=== PATIENT | male | born 1955 | race Caucasian/White ===

== ENCOUNTER 2022-04-02 22:43 | Emergency (ER) | payer OTHER ==
[2022-04-02] MEDS ORDERED: Famotidine 20 MG Tab PO ONE (22:47)
[2022-04-02] MEDS ORDERED: methylPREDNISolone Sodium Succinate 125 MG/2 ML SDV IVPUSH ONE (22:47)
[2022-04-02] MEDS ORDERED: Ibuprofen 600 MG Tab PO ONE (23:53)
== END 2022-04-03 01:29 | disposition home or self-care (01) ==
LOC: JP.ED 22:43
DX: T63.441A Toxic effect of venom of bees, accidental (unintentional), initial encounter (principal); Z91.030 Bee allergy status
CPT/HCPCS: 96374; 99283; A9270; J2930

== ENCOUNTER 2023-03-10 07:49 | Day surgery (SDC) | payer MEDICARE, BC ==
[2023-03-10 08:11] LABS: HEMATOCRIT 47.1 % (38.4-49.7); HEMOGLOBIN 16.2 g/dL (12.9-16.9); MEAN CORPUSCULAR HGB CONC 34.4 g/dL (31.6-35.5); MEAN CORPUSCULAR VOLUME 93.1 fL (81.4-99.0); RED BLOOD CELL COUNT 5.06 M/uL (4.14-5.76); WHITE BLOOD CELL COUNT,WBC 6.7 K/uL (3.2-11.0)
[2023-03-10] MEDS ORDERED: Lactated Ringers 1,000 ML IV SCH (08:30)
[2023-03-10 08:31] LABS: ALANINE AMINOTRANSFERASE,ALT 37 U/L (12-78); ALBUMIN 3.8 g/dL (3.4-5.0); ALKALINE PHOSPHATASE 71 U/L (46-116); ASPARTATE AMNIOTRANSFERASE,AST 26 U/L (15-37); BILIRUBIN TOTAL 0.7 mg/dL (0.2-1.0); BLOOD UREA NITROGEN,BUN 11 mg/dL (7-18); CALCIUM 8.9 mg/dL (8.5-10.1); CARBON DIOXIDE,CO2 29 mmol/L (21-32); CHLORIDE,CL 103 mmol/L (100-108); EST CRCL DRUG DOSING (CG) 76.35 mL/min; ESTIMATED GFR 82 mL/min (>60); GLUCOSE RANDOM 102 mg/dL (74-106); POTASSIUM,K 3.8 mmol/L (3.6-5.2); PROTEIN TOTAL,TP 7.7 g/dL (6.4-8.2); SODIUM,NA 138 mmol/L (140-148)
[2023-03-10 08:32] LABS: ANION GAP 9.8 mmol/L (5.0-14.0)
[2023-03-10] MEDS ORDERED: Propofol 200 MG/20 ML SDV ONE (08:42)
[2023-03-10] MEDS ORDERED: Midazolam 1 MG/ML 2 ML SDV ONE (09:00)
[2023-03-10] MEDS ORDERED: fentaNYL 50 MCG/ML SDV ONE (09:00)
== END 2023-03-10 11:30 | disposition home or self-care (01) ==
LOC: JP.SDS 07:49
PROVIDERS: ATTEND Student in an Organized Health Care Education/Training Program
DX: Z12.11 Encounter for screening for malignant neoplasm of colon (principal); D12.4 Benign neoplasm of descending colon; K57.30 Diverticulosis of large intestine without perforation or abscess without bleeding; Z91.030 Bee allergy status
CPT/HCPCS: 36415; 45380; 80053; 85027; 88305; 93005; J2250; J2704; J3010; J7120